=== PATIENT | male | born 1950 | race Caucasian/White ===

== ENCOUNTER 2017-01-29 17:01 | Emergency (ER) | payer OTHER ==
[~2017-01-29 17:01] MED LIST: *DENIES; CIALIS5 MG PO; COSAMIN DS1 TAB PO; [UNRECOGNIZED DRUG - OTHER] OR
== END 2017-01-29 18:30 | disposition home or self-care (01) ==
LOC: ER 17:01
DX: S39.011A Strain of muscle, fascia and tendon of abdomen, initial encounter (principal); Z85.46 Personal history of malignant neoplasm of prostate; Z79.899 Other long term (current) drug therapy; V80.010A Animal-rider injured by fall from or being thrown from horse in noncollision accident, initial encounter
CPT/HCPCS: 73502-RT; 74176; 96374; 96375; 99285; J1170; J2405